=== PATIENT | female | born 1940 | race Caucasian/White ===

== ENCOUNTER → 2016-12-22 | Outpatient (CLI) | payer OTHER, BC ==
[~2016-12-22] MED LIST: ALBUTEROL INHAL17 GM IH; ALLOPURINOL 10100 M1; CENTRUM ULTRA1 EACH PO; CHILDREN'S50 MG/1.24 PO; LISINOPRIL-HCT1 EAC2 PO; LISINOPRIL20 MG PO; PREDNISONE50 MG PO; PRILOSEC 10MG C10 MG PO; PROAIR HFA8.5 GM; QVAR HFA 440 MCG/UN1; THERA-M CAPLET1 EACH PO; ZESTORETIC; ZYRTEC PO; ZYRTEC10 M2 PO
== END ==
LOC: ULTRA 08:49
DX: R92.2 Inconclusive mammogram (principal)

== ENCOUNTER → 2017-02-02 | Outpatient (CLI) | payer OTHER, BC | LOC: CAT 16:03 | DX: R19.7 Diarrhea, unspecified (principal) ==

== ENCOUNTER → 2018-03-30 | Outpatient (CLI) | payer OTHER, BC | LOC: RAD 10:53 | DX: Z12.31 Encounter for screening mammogram for malignant neoplasm of breast (principal); Z13.820 Encounter for screening for osteoporosis; Z78.0 Asymptomatic menopausal state ==

== ENCOUNTER → 2018-04-19 | Outpatient (CLI) | payer OTHER, BC | LOC: ULTRA 09:02 | DX: N60.02 Solitary cyst of left breast (principal) ==

== ENCOUNTER → 2018-06-25 | Outpatient (CLI) | payer OTHER, BC ==
[~2018-06-25] VITALS: Ht 152.4 cm; Wt 88.5 kg
[~2018-06-25] MED LIST changes: +ASPIR 8181 MG PO; +BYSTOLIC 5 MG5 M1 PO; +BYSTOLIC2.5 MG PO; +CENTRUM SILVER1 EAC4 PO; +EDARBYCLOR 40-1 EAC1 PO; +IBUPROFEN 200200 M1 PO; +LISINOPRIL5 MG PO; +QVAR REDIHALE10.6 GM INH; +VITAMIN B-12500 MCG PO; +ZOCOR20 MG PO
--- NOTE | ~2018-06-25 | CATHLAB ---
[facility] [employer] [facility] [place] [address] INVASIVE PROCEDURE REPORT Name: MELCHORMIGUEL ANGELCorwin MORIN Room #: REG Payal#: [id number] Admission: 06/25/18 Attend Phys: Bernardo Aldana, Discharge: Date of : 40 Date of Service: 06/26/18 1046 Report #: [id number] THIS REPORT FOR: //name// APPROVED REPORT Study performed: 06/25/2018 07:19:04 Patient Details Patient Status: Out-Patient Room #: The patient is a 77 year-old female Event Personnel Bernardo Aldana Monotype Caster, Franklin Guillen RN RN, Chana Schwartz RN RN, Julia Gutierrez RTR, IT PROGRAMMER Scrub, Julia Gutierrez RTR, IT PROGRAMMER Scrub, Duncan Villa Monitor Procedures Performed Left Heart Cath w/or w/o Coronaries [id number] [facility] Aortogram Abdominal Peripheral Angio [id number] Indication Chest pain Procedure Narrative The Right Groin^ was infiltrated with 1% Lidocaine subcutaneous anesthesia. A PINNACLE 6FR Sheath #[id number] sheath was inserted into the RFA^. Coronary angiography was performed using coronary diagnostic catheters. The right coronary system was accessed and visualized with a JR4 catheter. The left coronary system was accessed and visualized with a JL4 catheter. The left ventricle was accessed and visualized with a PIGTAIL catheter. Left ventriculogram was performed in 30 degree projection. An aortogram of the abdominal aorta was performed. Closure device was deployed with a 6 Fr MYNXGRIP 6/7F #[id number]. The patient tolerated the procedure well and there were no complications associated with the procedure. Intraoperative Conscious Sedation Sedation start time: 8.31 Case end Time: 9.12 Fentanyl mcg Versed mg Fluoro Time: 2.41 minutes Dose: DAP 3876 cGycm2 383 mGy Contrast Type and Amount: Omnipaque 120 ml [facility] [place] [address] INVASIVE PROCEDURE REPORT Name: MELCHORMIGUEL ANGEL MIKEL Room #: REG [facility]#: [id number] Admission: 06/25/18 Attend Phys: Bernardo Aldana, Discharge: Date of : 40 Date of Service: 06/26/18 1046 Report #: [id number] Hemodynamics The left ventricular pressure is 207/15 mmHg with a mean of mmHg. Conclusion #1 normal left ventricular size and normal LV function EF 60% #2 left main moderate size widely patent giving rise to LAD circumflex. #3 LAD with mild irregularities extends to the apex. Small in caliber at the distal third #4 circumflex OM nondominant with moderate distribution no occlusive disease #5 dominant right coronary artery with an eccentric 50% mid vessel lesion smooth PDA ALEISHA well preserved #6 selective bilateral renal angiography shows mild ostial plaquing. #7 abdominal aorta is intact no aneurysm brisk flow noted into widely patent iliac system Recommendations and plan: Patient had significant hypertensive response with lability noted. No indication of renal artery stenosis. Required significant IV medications for blood pressure control. We'll initiate a by mouth regimen. Renin and aldosterone levels have been sent with this recent history of extreme hypertensive lability. No lifting for 48 hours to line tub Jacuzzi or Clay for one week. Follow-up is arranged in 2 weeks for blood pressure management. <ELECTRONICALLY SIGNED> By: Bernardo Aldana MD, FACC 06/26/18 1046 1046 1046 Bernardo Aldana MD, FACC /INF
[2018-06-25 07:14] VITALS: BP 173/75
[2018-06-25 07:46] LABS: HEMATOCRIT 41.6 % (37.0-47.0); HEMOGLOBIN 13.8 gm/dL (12.0-15.0); MCH 29.2 pg (26.0-34.0); MCHC 33.3 g/dL (28.0-37.0); MCV 87.7 fL (80.0-100.0); RBC 4.74 mil/uL (4.20-5.00); RDW 13.7 % (10.5-14.5); WBC 9.4 thou/uL (4.0-11.0)
[2018-06-25 07:50] LABS: CALCIUM 9.8 mg/dL (8.5-10.1); CREATININE 0.9 mg/dL (0.6-1.0)
[2018-06-29 23:07] LABS: RENIN 0.418 ng/mL/hr (0.167-5.380)
[2018-06-30 00:09] LABS: ALDOSTERONE 1.2 ng/dL (0.0-30.0)
== END | disposition home or self-care (01) ==
LOC: CATH 06:52
PROVIDERS: Internal Medicine Cardiovascular Disease
DX: I25.10 Atherosclerotic heart disease of native coronary artery without angina pectoris (principal); I10 Essential (primary) hypertension; E11.9 Type 2 diabetes mellitus without complications; J44.9 Chronic obstructive pulmonary disease, unspecified; M19.90 Unspecified osteoarthritis, unspecified site; G47.33 Obstructive sleep apnea (adult) (pediatric); E78.5 Hyperlipidemia, unspecified; K21.9 Gastro-esophageal reflux disease without esophagitis; F17.210 Nicotine dependence, cigarettes, uncomplicated; Z98.890 Other specified postprocedural states; Z79.899 Other long term (current) drug therapy; E66.09 Other obesity due to excess calories; Z88.0 Allergy status to penicillin; Z90.49 Acquired absence of other specified parts of digestive tract; Z88.2 Allergy status to sulfonamides; Z91.040 Latex allergy status; Z88.8 Allergy status to other drugs, medicaments and biological substances; Z79.82 Long term (current) use of aspirin

== ENCOUNTER → 2018-09-15 | Outpatient (CLI) | payer OTHER, BC | LOC: MRI 14:11 | DX: M47.817 Spondylosis without myelopathy or radiculopathy, lumbosacral region (principal); M47.814 Spondylosis without myelopathy or radiculopathy, thoracic region; M51.27 Other intervertebral disc displacement, lumbosacral region; D18.09 Hemangioma of other sites; R60.0 Localized edema ==

== ENCOUNTER → 2018-10-21 | Outpatient (CLI) | payer OTHER, BC | LOC: ULTRA 13:00 | DX: M79.605 Pain in left leg (principal) ==

== ENCOUNTER → 2018-12-02 | Outpatient (CLI) | payer OTHER, BC | LOC: ULTRA 08:54 | DX: R92.8 Other abnormal and inconclusive findings on diagnostic imaging of breast (principal) ==

== ENCOUNTER → 2019-04-13 | Outpatient (CLI) | payer OTHER, BC | LOC: RAD 03:40 | DX: Z12.31 Encounter for screening mammogram for malignant neoplasm of breast (principal) ==

== ENCOUNTER → 2019-07-13 | Outpatient (CLI) | payer OTHER, BC | LOC: ULTRA 09:04 | DX: N60.12 Diffuse cystic mastopathy of left breast (principal); N60.11 Diffuse cystic mastopathy of right breast ==

== ENCOUNTER → 2020-04-02 | Outpatient (CLI) | payer OTHER, BC | LOC: SJCVCIMAG 09:10 | PROVIDERS: ATTEND Internal Medicine Cardiovascular Disease | DX: I35.1 Nonrheumatic aortic (valve) insufficiency (principal); I71.4 Abdominal aortic aneurysm, without rupture; I10 Essential (primary) hypertension; E78.5 Hyperlipidemia, unspecified ==

== ENCOUNTER → 2020-05-01 | Outpatient (CLI) | payer OTHER, BC | LOC: RAD 08:08 | PROVIDERS: ATTEND Neuromusculoskeletal Medicine & OMM | DX: Z12.31 Encounter for screening mammogram for malignant neoplasm of breast (principal) ==

== ENCOUNTER → 2020-06-06 | Outpatient (CLI) | payer OTHER, BC | LOC: RAD 15:19 | PROVIDERS: ATTEND Neuromusculoskeletal Medicine & OMM | DX: M43.12 Spondylolisthesis, cervical region (principal); M48.02 Spinal stenosis, cervical region; M47.812 Spondylosis without myelopathy or radiculopathy, cervical region; M25.78 Osteophyte, vertebrae ==

== ENCOUNTER 2020-11-25 22:20 | Emergency (ER) | payer OTHER, BC ==
[~2020-11-25] VITALS: Ht 152.4 cm; Wt 90.7 kg
[2020-11-25] MEDS ORDERED: GLIPIZIDE 10 MG10 MG PO (22:38)
[2020-11-25] MEDS ORDERED: ROSUVASTATIN CA10 MG PO (22:39)
[2020-11-25] MEDS ORDERED: ZYRTEC10 M5 PO (22:40)
[2020-11-25] MEDS ORDERED: IRBESARTAN-HCT1 EAC1 PO (22:40)
[2020-11-25 23:06] LABS: URINE BILIRUBIN NEGATIVE (Negative); URINE BLOOD NEGATIVE (Negative); URINE CLARITY CLEAR; URINE COLOR YELLOW; URINE GLUCOSE-RANDOM* NEGATIVE (Negative); URINE KETONES NEGATIVE (Negative); URINE NITRITE-REFLEX NEGATIVE (Negative); URINE PROTEIN (DIPSTICK) NEGATIVE (Negative); URINE SPECIFIC GRAVITY <= 1.005 (1.005-1.035); URINE UROBILINOGEN 0.2 E.U./dl (0.2-1.0)
[2020-11-25 23:08] LABS: URINE LEUKOCYTES-REFLEX 1+ (Negative)
[2020-11-25 23:13] LABS: BASOPHILS 0.7 % (0.0-2.0); EOSINOPHILS 1.2 % (0.0-3.0); HEMATOCRIT 38.2 % (37.0-47.0); HEMOGLOBIN 12.6 gm/dL (12.0-15.0); MCH 29.5 pg (26.0-34.0); MCHC 33.1 g/dL (28.0-37.0); MCV 89.1 fL (80.0-100.0); MONOCYTES 6.5 % (1.0-8.0); PLATELET COUNT 342 thou/uL (150-400); POLYS 77.6 % (36.0-66.0); RBC 4.28 mil/uL (4.20-5.00); RDW 13.8 % (10.5-14.5); WBC 15.4 thou/uL (4.0-11.0)
[2020-11-25 23:32] LABS: ANION GAP 9 mmol/L (7-16); BUN 16 mg/dL (7-18); CALCIUM 9.5 mg/dL (8.5-10.1); CHLORIDE 97 mmol/L (98-107); CO2 25 mmol/L (21-32); CREATININE 0.9 mg/dL (0.6-1.0); GLUCOSE 129 mg/dL (74-106); POTASSIUM 5.2 mmol/L (3.5-5.1); SODIUM 131 mmol/L (136-145)
[2020-11-25 23:35] LABS: BACTERIA-REFLEX 1-9 Few /HPF (None Seen); CASTS None Seen /LPF (None Seen); CRYSTALS None Seen /LPF (None Seen); MUCUS 4-6 Moderate strn/LPF (None Seen); SQUAMOUS 0-3 Few /LPF (0-3); URINE RBC 0-2 Rare /HPF (0-2); URINE WBC-REFLEX 6-15 Few /HPF (0-5)
[2020-11-25 23:39] LABS: ALBUMIN 3.4 g/dL (3.4-5.0); SGPT 30 U/L (30-65); TOTAL BILIRUBIN 0.5 mg/dL (0.2-1.0); TOTAL PROTEIN 7.9 g/dL (6.4-8.2); TROPONIN-I <0.06 ng/mL (<0.06)
[2020-11-25 23:40] LABS: SGOT 59 U/L (15-37)
[2020-11-26] MEDS ORDERED: MACROBID 100 M100 MG PO (01:27)
[2020-11-26 01:35] VITALS: BP 152/66
--- NOTE | 2020-11-26 07:08 | EKG ---
[place] [address] [facility] [employer] [place] [address] ELECTROCARDIOGRAM REPORT Name: MELCHORMIGUEL ANGEL Delcid Room #: 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1940 Requested By: Zach Willard Order Number: [id number] MD: Riley Joseph Measurements Intervals Justice Rate: 87 P: 29 [place]: 167 QRS: 20 QRSD: 105 T: 14 QT: 390 QTc: 470 Interpretive Statements Sinus rhythm Borderline T abnormalities, anterior leads Compared to ECG 02/08/2013 09:54:37 T-wave abnormality now present Electronically Signed On 11-26-2020 7:08:41 [employer] by Riley Joseph [email or web address] <ELECTRONICALLY SIGNED> By: Riley Joseph MD, [facility] 11/26/20 0708 [id number] Riley Joseph MD, FACC /EPI
== END 2020-11-26 01:36 | disposition home or self-care (01) ==
LOC: ER 22:20
PROVIDERS: Emergency Medicine
DX: N39.0 Urinary tract infection, site not specified (principal); R53.1 Weakness; R51.9 Headache, unspecified; I31.3 Pericardial effusion (noninflammatory); I10 Essential (primary) hypertension; E11.9 Type 2 diabetes mellitus without complications; K21.9 Gastro-esophageal reflux disease without esophagitis; Z90.49 Acquired absence of other specified parts of digestive tract; Z79.899 Other long term (current) drug therapy; Z90.710 Acquired absence of both cervix and uterus; Z88.1 Allergy status to other antibiotic agents; Z88.0 Allergy status to penicillin; Z88.2 Allergy status to sulfonamides; Z88.5 Allergy status to narcotic agent; Z88.8 Allergy status to other drugs, medicaments and biological substances

== ENCOUNTER → 2020-12-06 | Outpatient (CLI) | payer OTHER, BC ==
[~2020-12-06] MED LIST changes: +GLIPIZIDE 10 MG10 MG PO; +IRBESARTAN-HCT1 EAC1 PO; +MACROBID 100 M100 MG PO; +ROSUVASTATIN CA10 MG PO; +ZYRTEC10 M5 PO
== END ==
LOC: SJCVCIMAG 07:54
PROVIDERS: ATTEND Internal Medicine Cardiovascular Disease
DX: I08.0 Rheumatic disorders of both mitral and aortic valves (principal); I25.10 Atherosclerotic heart disease of native coronary artery without angina pectoris; I77.89 Other specified disorders of arteries and arterioles; E78.00 Pure hypercholesterolemia, unspecified; I10 Essential (primary) hypertension; E11.9 Type 2 diabetes mellitus without complications; I77.810 Thoracic aortic ectasia; I65.23 Occlusion and stenosis of bilateral carotid arteries; J44.9 Chronic obstructive pulmonary disease, unspecified; G47.33 Obstructive sleep apnea (adult) (pediatric); Z90.49 Acquired absence of other specified parts of digestive tract; Z90.710 Acquired absence of both cervix and uterus; Z98.890 Other specified postprocedural states; Z88.8 Allergy status to other drugs, medicaments and biological substances; Z79.82 Long term (current) use of aspirin; Z79.899 Other long term (current) drug therapy

== ENCOUNTER → 2020-12-17 | Outpatient (CLI) | payer OTHER, BC | LOC: MRI 12:29 | PROVIDERS: ATTEND Otolaryngology Plastic Surgery within the Head & Neck | DX: H90.A22 Sensorineural hearing loss, unilateral, left ear, with restricted hearing on the contralateral side (principal); H93.12 Tinnitus, left ear; I31.9 Disease of pericardium, unspecified; J34.2 Deviated nasal septum; J34.3 Hypertrophy of nasal turbinates; J31.0 Chronic rhinitis ==

== ENCOUNTER → 2021-04-11 | Outpatient (CLI) | payer OTHER, BC | LOC: SJCVC 11:07 | PROVIDERS: ATTEND Internal Medicine Cardiovascular Disease | DX: I77.810 Thoracic aortic ectasia (principal); I10 Essential (primary) hypertension; E78.00 Pure hypercholesterolemia, unspecified; I25.10 Atherosclerotic heart disease of native coronary artery without angina pectoris; E11.9 Type 2 diabetes mellitus without complications; I35.1 Nonrheumatic aortic (valve) insufficiency; I65.23 Occlusion and stenosis of bilateral carotid arteries; J44.9 Chronic obstructive pulmonary disease, unspecified; G47.33 Obstructive sleep apnea (adult) (pediatric); Z79.82 Long term (current) use of aspirin; Z79.899 Other long term (current) drug therapy; Z88.1 Allergy status to other antibiotic agents; Z88.0 Allergy status to penicillin; Z88.2 Allergy status to sulfonamides; Z88.8 Allergy status to other drugs, medicaments and biological substances; Z88.5 Allergy status to narcotic agent ==

== ENCOUNTER → 2021-05-15 | Outpatient (CLI) | payer OTHER, BC | LOC: MRI 12:33 | PROVIDERS: ATTEND Neuromusculoskeletal Medicine & OMM | DX: M47.27 Other spondylosis with radiculopathy, lumbosacral region (principal); M47.26 Other spondylosis with radiculopathy, lumbar region; M43.16 Spondylolisthesis, lumbar region; M51.16 Intervertebral disc disorders with radiculopathy, lumbar region; M48.061 Spinal stenosis, lumbar region without neurogenic claudication; R60.0 Localized edema ==

== ENCOUNTER → 2021-05-28 | Outpatient (CLI) | payer OTHER, BC | LOC: ULTRA 09:27 | PROVIDERS: ATTEND Neuromusculoskeletal Medicine & OMM | DX: K76.0 Fatty (change of) liver, not elsewhere classified (principal); N28.89 Other specified disorders of kidney and ureter ==

== ENCOUNTER → 2021-06-13 | Outpatient (CLI) | payer OTHER, BC | LOC: CAT 06-06 08:28 | PROVIDERS: ATTEND Neuromusculoskeletal Medicine & OMM | DX: K57.30 Diverticulosis of large intestine without perforation or abscess without bleeding (principal); I31.3 Pericardial effusion (noninflammatory); Z90.49 Acquired absence of other specified parts of digestive tract ==

== ENCOUNTER → 2021-06-27 | Outpatient (CLI) | payer OTHER, BC | LOC: BC 12:29 | PROVIDERS: ATTEND Neuromusculoskeletal Medicine & OMM | DX: Z12.31 Encounter for screening mammogram for malignant neoplasm of breast (principal); N64.89 Other specified disorders of breast ==

== ENCOUNTER → 2021-07-12 | Outpatient (CLI) | payer OTHER, BC ==
[~2021-07-12] VITALS: Ht 152.4 cm; Wt 92.1 kg
[~2021-07-12] MED LIST changes: +ALEVE220 M1 PO; +FISH OIL 1,0001 EAC9 PO; +GLIPIZIDE XL5 MG PO; +MEDROLDOSEPACK PO; +XYZAL5 MG PO
[2021-07-12 10:08] VITALS: BP 187/88
--- NOTE | 2021-07-12 10:23 | NUR ---
Pain Clinic Assessment: 1. History of Osteoarthritis: Not Applicable History of Rheumatoid Arthritis: Not Applicable 2. Height: 5 ft. 0 in. 152.4 cm. Weight: 203.0 lb. oz. 92.080 kg. Patient's BMI: 39.6 3. Vital Signs: BP: 187/88 Pulse: 80 Resp: 16 Temp: 02 Sat: 97 ECG Mon: 4. Pain Intensity: 5 5. Fall Risk: Dizziness: Y Needs help standing or walking: N Fallen in the last 3 months: N Fall risk comments: 6. Patient on Blood Thinner: None 7. History of Hypertension: Y 8. Opioid Therapy greater than 6 weeks: N Opiate Contract Signed: 9. Risk Assessment Tool Provided: LOW 10. Functional Assessment Tool: 11. Recreational Drug Use: Never Drug Type: Tobacco Use: Never Smoker Tobacco Type: Amount or Packs/day: How Many Years: Alcohol Use: No Frequency: Quant:
== END ==
LOC: PAIN 07:05
PROVIDERS: ATTEND Anesthesiology Pain Medicine
DX: M47.817 Spondylosis without myelopathy or radiculopathy, lumbosacral region (principal); M47.816 Spondylosis without myelopathy or radiculopathy, lumbar region; G89.29 Other chronic pain; I10 Essential (primary) hypertension; J42 Unspecified chronic bronchitis; M19.90 Unspecified osteoarthritis, unspecified site; E11.9 Type 2 diabetes mellitus without complications; G47.30 Sleep apnea, unspecified; I71.9 Aortic aneurysm of unspecified site, without rupture; R78.5 Finding of other psychotropic drug in blood; K21.9 Gastro-esophageal reflux disease without esophagitis; I35.1 Nonrheumatic aortic (valve) insufficiency; Z88.8 Allergy status to other drugs, medicaments and biological substances; Z88.1 Allergy status to other antibiotic agents; Z88.0 Allergy status to penicillin; Z79.82 Long term (current) use of aspirin; Z79.84 Long term (current) use of oral hypoglycemic drugs; Z79.899 Other long term (current) drug therapy

== ENCOUNTER → 2021-09-06 | Outpatient (CLI) | payer OTHER, BC ==
[~2021-09-06] VITALS: Ht 152.4 cm; Wt 93.9 kg
[2021-09-06 09:54] VITALS: BP 148/73
--- NOTE | 2021-09-06 10:02 | NUR ---
Pain Clinic Assessment: 1. History of Osteoarthritis: Not Applicable History of Rheumatoid Arthritis: Not Applicable 2. Height: 5 ft. 0 in. 152.4 cm. Weight: 207.0 lb. oz. 93.895 kg. Patient's BMI: 40.4 3. Vital Signs: BP: 148/73 Pulse: 79 Resp: 20 Temp: 02 Sat: 95 ECG Mon: 4. Pain Intensity: 2 5. Fall Risk: Dizziness: N Needs help standing or walking: N Fallen in the last 3 months: N Fall risk comments: 6. Patient on Blood Thinner: None 7. History of Hypertension: Y 8. Opioid Therapy greater than 6 weeks: N Opiate Contract Signed: 9. Risk Assessment Tool Provided: LOW 10. Functional Assessment Tool: 11. Recreational Drug Use: Never Drug Type: Tobacco Use: Never Smoker Tobacco Type: Amount or Packs/day: How Many Years: Alcohol Use: No Frequency: Quant:
== END | disposition home or self-care (01) ==
LOC: PAIN 06:54
PROVIDERS: ATTEND Anesthesiology Pain Medicine
DX: M54.16 Radiculopathy, lumbar region (principal); G89.29 Other chronic pain; Z98.890 Other specified postprocedural states; Z79.899 Other long term (current) drug therapy; Z88.0 Allergy status to penicillin; Z88.2 Allergy status to sulfonamides; Z88.8 Allergy status to other drugs, medicaments and biological substances

== ENCOUNTER → 2021-11-13 | Outpatient (CLI) | payer OTHER, BC ==
[~2021-11-13] VITALS: Ht 152.4 cm; Wt 95.4 kg
[2021-11-13 10:44] VITALS: BP 158/81
--- NOTE | 2021-11-13 10:57 | NUR ---
Pain Clinic Assessment: 1. History of Osteoarthritis: Not Applicable History of Rheumatoid Arthritis: Not Applicable 2. Height: 5 ft. 0 in. 152.4 cm. Weight: 210.4 lb. oz. 95.437 kg. Patient's BMI: 41.1 3. Vital Signs: BP: 158/81 Pulse: 84 Resp: 20 Temp: 02 Sat: 97 ECG Mon: 4. Pain Intensity: 3 5. Fall Risk: Dizziness: N Needs help standing or walking: N Fallen in the last 3 months: N Fall risk comments: 6. Patient on Blood Thinner: None 7. History of Hypertension: Y 8. Opioid Therapy greater than 6 weeks: N Opiate Contract Signed: 9. Risk Assessment Tool Provided: LOW-0 10. Functional Assessment Tool: / 11. Recreational Drug Use: Never Drug Type: Tobacco Use: Never Smoker Tobacco Type: Amount or Packs/day: How Many Years: Alcohol Use: No Frequency: Quant:
== END ==
LOC: PAIN 08:32
PROVIDERS: ATTEND Anesthesiology Pain Medicine
DX: G89.29 Other chronic pain (principal); M54.50 Low back pain, unspecified